=== PATIENT | female | born 1995 ===

== ENCOUNTER 2019-01-02 21:12 | Emergency (ER) | payer MEDICAID ==
[2019-01-02 21:15] VITALS: BP 107/77; PULSE 69; RESP 16; TEMP 98.5; O2SAT 100; BMI 33.3
--- NOTE | 2019-01-02 22:11 | ED PDOC ---
HPI: General Adult Time Seen by Provider: 01/02/19 21:27 Chief Complaint (Nursing): Female Genitourinary Chief Complaint (Provider): sore throat History Per: Patient History/Exam Limitations: no limitations Onset/Duration Of Symptoms: Days (2 weeks) Current Symptoms Are (Timing): Still Present Additional Complaint(s): 23 y/o female brought in by EMS for evaluation of multiple complaints. Patient reports headache and sore throat. Patient also states she thinks she may be . Patient also reports intermittent vaginal pain, states she thinks it may be because of her IUD that was placed 4 months ago. Denies fever, vomiting, abdominal pain, dysuria, hematuria, vaginal bleeding/discharge. Patient states she has not been sexually active in over one month. Patient states she is homeless and has no where to go Past Medical History Reviewed: Historical Data, Nursing Documentation, Vital Signs Vital Signs: Last Vital Signs Temp 98.5 F 01/02/19 21:15 Pulse 69 01/02/19 21:15 Resp 16 01/02/19 21:15 BP 107/77 01/02/19 21:15 Pulse Ox 100 01/02/19 21:15 Primary Care Provider: Procedure,Nonphys - Medical History PMH: No Chronic Diseases - Surgical History Surgical History: No Surg Hx - Family History Family History: States: No Known Family Hx - Allergies Allergies/Adverse Reactions: Allergies Allergy/AdvReac Type Severity Reaction Status Date / Time No Known Allergies Allergy Verified 01/02/19 22:07 Review of Systems ROS Statement: Except As Marked, All Systems Reviewed And Found Negative ENT: Positive for: Throat Pain Neurological: Positive for: Headache Physical Exam - Reviewed Nursing Documentation Reviewed: Yes Vital Signs Reviewed: Yes - Physical Exam Appears: Positive for: Well, Non-toxic, No Acute Distress Head Exam: Positive for: ATRAUMATIC, NORMAL INSPECTION, NORMOCEPHALIC Skin: Positive for: Normal Color Eye Exam: Positive for: Normal appearance ENT: Positive for: Normal ENT Inspection Cardiovascular/Chest: Positive for: Regular Rate, Rhythm Respiratory: Positive for: Normal Breath Sounds Gastrointestinal/Abdominal: Positive for: Normal Exam Pelvic Exam: Positive for: External Exam Normal, No Cerv. Motion Tender, Other (no IUD strings noted). Negative for: Active Bleeding, Discharge, Tender Adnexa, Tender Uterus Back: Positive for: Normal Inspection Extremity: Positive for: Normal ROM Neurological/Psych: Positive for: Awake, Alert, Oriented (x3) - ECG O2 Sat by Pulse Oximetry: 100 - Progress ED Course And Treament: -upreg -udip -urinalysis -urine culture -GC/Chlamydia -rapid strep Ultrasound of the pelvis. Indication: Pelvic pain. Technique: Real-time ultrasound images were obtained. Findings: The uterus measures 10.2 x 3.5x6.7 cm. Anteverted uterus. Normal endometrial thickness measuring 5.7 mm. Intrauterine device is noted. Right ovarian simple cyst measuring 2 cm. Left ovarian simple cyst measuring 3.7 cm. Impression: Bilateral simple ovarian cysts without evidence of ovarian torsion Patient educated on findings, discharged with rx Ibuprofen Advised follow up PMD and Grain Drier within 2-3 days Return precautions given Disposition - Clinical Impression Clinical Impression: Sore throat, Bilateral ovarian cysts, IUD strings lost - Patient ED Disposition Is Patient to be Admitted: No Counseled Patient/Family Regarding: Studies Performed, Diagnosis, Need For Followup, Rx Given - Disposition [facility] [Outside] Disposition: Routine/Home Disposition Time: 02:25 Condition: IMPROVED Instructions: Ovarian Cysts, Sore Throat in Adults
[2019-01-03 00:07] LABS: SQUAMOUS EPITHIAL 1 /hpf (0-5); URINE BILIRUBIN NEGATIVE (NEGATIVE); URINE BLOOD MODERATE (NEGATIVE); URINE CLARITY SLIGHTY-CLOUDY (Clear); URINE COLOR STRAW (YELLOW); URINE GLUCOSE (UA) NEG (NEGATIVE); URINE LEUKOCYTE ESTERASE TRACE Leu/uL (Negative); URINE PROTEIN NEGATIVE (NEGATIVE); URINE UROBILINOGEN 0.2-1.0 mg/dL (0.2-1.0)
--- NOTE | 2019-01-03 11:14 | US ---
Date of service: 01/03/2019 HISTORY: Pelvic pain, has IUD COMPARISON: None available. TECHNIQUE: Transabdominal pelvic ultrasound was performed. FINDINGS: UTERUS: Measures 10.2 x 3.5 x 6.7 cm. Normal in size and appearance. No fibroid or other mass lesion seen. ENDOMETRIUM: Measures 5.7 mm in diameter. LD remains in satisfactory position. CERVIX: No cervical abnormality identified. RIGHT OVARY: Measures 3.0 x 2.3 x 2.6 cm. No solid mass. Normal flow. There is a 2.0 x 1.7 cm simple cyst. LEFT OVARY: Measures 5.7 x 4.2 x 4.5 cm. No solid mass. Normal flow. There is a 3.7 x 3.6 x 3.5 cm simple cyst. FREE FLUID: No significant free fluid noted. OTHER FINDINGS: None. IMPRESSION: IUD remains in satisfactory position. 3.7 cm simple cyst in the left ovary. No evidence for torsion. A preliminary report was provided by [facility].
== END 2019-01-03 02:40 | disposition home or self-care (01) ==
LOC: H.ER 21:12
DX: J02.9 Acute pharyngitis, unspecified (principal); N83.201 Unspecified ovarian cyst, right side; N83.202 Unspecified ovarian cyst, left side; Z59.0 Homelessness; Z97.5 Presence of (intrauterine) contraceptive device